=== PATIENT | female | born 1955 | race Caucasian/White ===

== ENCOUNTER 2017-12-12 16:25 | Emergency (ER) | payer BC ==
--- NOTE | 2017-12-12 16:31 | PDOC ---
History of Present Illness - History of Present Illness Initial Comments: 12/12/17 16:56 The patient is a 62 year old female with no pertinent past medical history who presents with RLQ pain since Friday at 9:00 am. Patient saw her PCP today, and he sent her to the ED to rule out appendicitis. Patient states her pain is exacerbated when sitting, better when she stands, rates her rlq pain 5/10 and radiates to her back. She states that her pain is similar to her pain in August when she lifted the leaf of a table. She states that she took Advil for the pain yesterday with little relief. She denies recent heavy lifting. She denies dysuria, hematuria, nausea, vomitting, diarrhea, fever, chills, recent illness, recent travel outside of the country. Surgical Hx: Cesarian section x2 Social Hx: Works as a school nurse. Denies alcohol/tobacco/drug use Allergies: Latex PCP: Dr. Gandhi <Dione Waggoner - Last Filed: 12/12/17 16:57> - General History Source: Patient Exam Limitations: No Limitations <María Beauchamp - Last Filed: 12/13/17 14:45> - General Chief Complaint: Pain Stated Complaint: RLA PAIN X4 DAYS Time Seen by Provider: 12/12/17 16:26 Past History <Dione Waggoner - Last Filed: 12/12/17 16:57> - Suicide/Smoking/Psychosocial Hx Smoking History: Never smoked Hx Alcohol Use: No Drug/Substance Use Hx: No Substance Use Type: None <María Beauchamp - Last Filed: 12/13/17 14:45> - Past Medical History Allergies/Adverse Reactions: Allergies Allergy/AdvReac Type Severity Reaction Status Date / Time latex Allergy Verified 12/12/17 16:26 Home Medications: Ambulatory Orders NK [No Known Home Medication] 12/12/17 Review of Systems - Review of Systems Comments:: 12/12/17 16:57 GENERAL/CONSTITUTIONAL: No: fever, chills, weakness, loss of appetite. HEAD, EYES, EARS, NOSE AND THROAT: No: change in vision, ear pain, discharge, sore throat, throat swelling. CARDIOVASCULAR: No: chest pain, lightheadedness, palpitations, syncope RESPIRATORY: No: cough, shortness of breath, wheezing, hemoptysis, stridor. GASTROINTESTINAL: +RLQ pain No: nausea, vomiting, abdominal cramping, diarrhea, rectal bleeding, constipation. GENITOURINARY: No: dysuria, hematuria, frequency, urgency, flank pain. MUSCULOSKELETAL: +back pain secondary to RLQ pain. No: neck pain, joint pain, muscle swelling or pain SKIN: No: lesions, pallor, rash or easy bruising. NEUROLOGIC: No: headache, vertigo, paresthesias, weakness ENDOCRINE: No: unexplained weight gain or loss HEMATOLOGIC/LYMPHATIC: No: anemia, easy bleeding, swelling nodes 12/12/17 16:57 <Dione Waggoner - Last Filed: 12/12/17 16:57> *Physical Exam - Physical Exam Comments: 12/12/17 16:58 GENERAL: The patient is in no acute distress. HEAD: Normal with no signs of trauma. EYES: PERRLA, EOMI, sclera anicteric, conjunctiva clear. ENT: Ears normal, nares patent, oropharynx clear without exudates. Moist mucous membranes. NECK: Normal range of motion, supple without lymphadenopathy, JVD, or masses. LUNGS: Breath sounds equal, clear to auscultation bilaterally. No wheezes, and no crackles. HEART:Regular rate and rhythm, normal S1 and S2 without murmur, rub or gallop. ABDOMEN: Soft, nontender, normoactive bowel sounds. No guarding, no rebound. EXTREMITIES: Normal range of motion, no edema. No clubbing or cyanosis. No erythema, or tenderness. NEUROLOGICAL: Cranial nerves II through XII grossly intact. Normal speech. No focal neurological deficits. MUSCULOSKELETAL: Back nontender to palpation, no CVA tenderness SKIN: Warm, Dry, normal turgor, no rashes or lesions noted. <Dione Waggoner - Last Filed: 12/12/17 16:57> ED Treatment Course - LABORATORY CBC & Chemistry Diagram: 12/12/17 17:05 12/12/17 17:05 <María Beauchamp - Last Filed: 12/13/17 14:45> Medical Decision Making - Medical Decision Making 12/12/17 16:47 Miss Gonsalez is a 62-year-old female who is otherwise healthy who presents emergency department with a complaint of right lower quadrant pain. Patient symptoms began 3 days ago. There possibly 9:30am after returning home from her [place] from the airport, she noted right lower quadrant pain. Patient has been taking Motrin for pain. When it's at its worse, she notes pain both in her right lower quadrant and her right sacroiliac joint. She's had no nausea, vomiting, diarrhea. She's had no fevers or chills. She is able to tolerate foods and liquids. She denies hematuria or dysuria. In August she had something similar, this lasted several days and self resolved. Patient denies any traumatic injuries, patient denies heavy lifting. On examination: Patient is relatively comfortable appearing. Heart is regular Lungs are clear Hypoactive abdominal sounds. Patient's abdomen is soft, nondistended. She's actually not tender to palpation in the right lower quadrant. She has no CVA tenderness. When patient sat forward clenching her abdominal muscles, she noted this triggered her pain. Will do: Labs CT of the abdomen and pelvis Pelvic ultrasound to evaluate for ruptured ovarian cyst. Will give Tylenol IV as well as IV fluids (pt has a prior sensitivity to codeine ) Will reassess 12/12/17 18:19 Laboratory Tests 12/12/17 12/12/17 12/12/17 17:05 17:05 18:05 WBC 6.2 Hgb 14.5 Hct 42.5 Plt Count 169 Neutrophils % 61.1 Lymphocytes % 24.2 BUN 19 H Creatinine < 0.8 Random Glucose 116 H Urine Blood 1+ H Urine Nitrite Negative Ur Leukocyte Esterase Trace H TV US, small ov cyst, trace free fluid Signed out to Dr Evangelitsa Pending CT clinical impression: abdominal pain, initial presenting <María Beauchamp - Last Filed: 12/13/17 14:45> *DC/Admit/Observation/Transfer - Attestations Scribe Attestion: 12/12/17 16:58 Documentation prepared by Dione Waggoner, acting as medical transport specialist for María Beauchamp MD. <Dione Waggoner - Last Filed: 12/12/17 16:57> <María Beauchamp - Last Filed: 12/13/17 14:45> Diagnosis at time of Disposition: Abdominal pain, Constipation - Discharge Dispostion Disposition: HOME Condition at time of disposition: Stable - Patient Instructions Printed Discharge Instructions: Constipation (Alternative Therapy), Constipation Additional Instructions: Increase her fluid intake, and fiber in your diet. Also can purchase [id number] laxative such as Dulcolax or MiraLAX and take as directed. Return to the emergency department immediately with ANY new, persistent or worsening symptoms. Continue any medications as previously prescribed by your physician. You should follow up with your primary doctor as soon as possible regarding today's emergency department visit. . Please make sure your doctor reviews the results of your emergency evaluation. Thank you for coming to the Emergency Department today for your care. It was a pleasure to see you today. Please note that your evaluation is INCOMPLETE until you follow-up with your doctor.
[2017-12-12] MEDS ORDERED: SODIUM CHLORIDE 1,000 ML IV STA (16:44)
[2017-12-12] MEDS ORDERED: ACETAMINOPHEN 1000 MG/100 ML VIAL (NON FORMULARY) IVPB ONE (16:44)
[2017-12-12] MEDS ORDERED: ACETAMINOPHEN INJECTION 100 ML IVPB ONE (16:51)
[2017-12-12 17:18] LABS: BASO % 2.3 % (0-2.0); EOS % 7.1 % (0-4.5); HEMATOCRIT 42.5 % (32.4-45.2); HEMOGLOBIN 14.5 GM/dl (10.7-15.3); LYMPH % 24.2 % (8-40); MCH 30.9 pg (25.7-33.7); MCHC 34.1 g/dl (32.0-36.0); MEAN CELL VOLUME 90.8 fl (80-96); MEAN PLT VOLUME 9.5 fl (7.5-11.1); MONO % 5.3 % (3.8-10.2); NEUT % 61.1 % (42.8-82.8); PLATELET COUNT 169 K/MM3 (134-434); RBC 4.67 M/mm3 (3.60-5.2); RDW 12.1 % (11.6-15.6); WHITE BLOOD COUNT 6.2 K/mm3 (4.0-10.8)
[2017-12-12 17:27] LABS: ALK PHOS 61 U/L (32-92); AMYLASE 59 U/L (25-125); ANION GAP 6 (8-16); BLOOD UREA NITROGEN 19 mg/dl (7-18); CHLORIDE 105 mmol/L (98-107); CO2 27 mmol/L (22-28); GLUCOSE,RANDOM 116 mg/dl (74-106); POTASSIUM 4.5 mmol/L (3.5-5.1); SGOT/AST 24 U/L (10-42); SGPT/ALT 10 U/L (10-40); SODIUM 138 mmol/L (136-145); TOT PROT 6.6 g/dl (6.4-8.3)
[2017-12-12 17:36] VITALS: BP 187/77; PULSE 63; TEMP 98.3; BMI 23.2
[2017-12-12 17:38] LABS: CREATININE < 0.8 mg/dl (0.6-1.3)
[2017-12-12 18:12] LABS: URINE APPEARANCE Clear; URINE BILIRUBIN Negative (NEGATIVE); URINE BLOOD 1+ (NEGATIVE); URINE COLOR YELLOW; URINE GLUCOSE (UA) Negative (NEGATIVE); URINE KETONE Negative (NEGATIVE); URINE LEUK ESTERASE TRACE (NEGATIVE); URINE NITRITE Negative (NEGATIVE); URINE PROTEIN Negative (NEGATIVE); URINE UROBILINOGEN 0.2 (0.2-1.0)
[2017-12-12 19:07] LABS: LIPASE 137 U/L (73-393)
--- NOTE | 2017-12-12 19:23 | PDOC ---
*Physical Exam - Vital Signs Last Vital Signs Temp Pulse Resp BP Pulse Ox 98.3 F 63 20 187/77 98 12/12/17 16:26 12/12/17 16:26 12/12/17 16:26 12/12/17 16:26 12/12/17 16:26 ED Treatment Course - LABORATORY CBC & Chemistry Diagram: 12/12/17 17:05 12/12/17 17:05 - ADDITIONAL ORDERS Additional order review: Laboratory Results 12/12/17 12/12/17 18:05 17:05 Sodium 138 Potassium 4.5 Chloride 105 Carbon Dioxide 27 Anion Gap 6 L BUN 19 H Creatinine < 0.8 Creat Clearance w eGFR > 60 Random Glucose 116 H Calcium 9.0 Total Bilirubin 1.0 AST 24 ALT 10 Alkaline Phosphatase 61 Total Protein 6.6 Albumin 4.0 Total Amylase 59 Lipase 137 Urine Color Yellow Urine Appearance Clear Urine pH 6.0 Ur Specific Barton 1.010 Urine Protein Negative Urine Glucose (UA) Negative Urine Ketones Negative Urine Blood 1+ H Urine Nitrite Negative Urine Bilirubin Negative Urine Urobilinogen 0.2 Ur Leukocyte Esterase Trace H 12/12/17 17:05 RBC 4.67 MCV 90.8 MCHC 34.1 RDW 12.1 MPV 9.5 Neutrophils % 61.1 Lymphocytes % 24.2 Monocytes % 5.3 Eosinophils % 7.1 H Basophils % 2.3 H - Medications Given in the ED: ED Medications Discontinued Medications Generic Name Dose Route Start Last Admin Trade Name Freq PRN Reason Stop Dose Admin Acetaminophen 1,000 mg 12/12/17 16:44 12/12/17 17:01 Ofirmev Injection - IVPB 12/12/17 16:45 1,000 mg ONCE ONE Administration Sodium Chloride 1,000 mls @ 1,000 mls/hr 12/12/17 16:44 12/12/17 17:01 Normal Saline - IV 12/12/17 17:43 1,000 mls/hr ASDIR STA Administration Progress Note - Progress Note Progress Note: This is a 62-year-old female whose care was transferred to ms from Dr. Beauchamp at 1900 hrs. Patient was sent to the emergency department by her PMD for evaluation and workup of right lower abdominal pain. Patient's chemistries and CBC are unremarkable. Patient has a CAT scan pending plan is a CAT scan is normal patient will be discharged home. 21:15 CT scan shows moderate fecal retention otherwise no acute intra-abdominal pathology the fluid seen on ultrasound is not visualized on CAT scan. I discussed with patient the findings of her CAT scan recommended that she increase fiber and fluid in her diet that she use some laxatives such as Dulcolax or MiraLAX and follow-up with her primary care doctor in the morning *DC/Admit/Observation/Transfer Diagnosis at time of Disposition: Abdominal pain Qualifiers: Abdominal location: right lower quadrant Qualified Code(s): R10.31 - Right lower quadrant pain Constipation Qualifiers: Constipation type: unspecified constipation type Qualified Code(s): K59.00 - Constipation, unspecified - Discharge Dispostion Disposition: HOME Admit: No - Referrals - Patient Instructions Printed Discharge Instructions: Constipation, Constipation (Alternative Therapy ) Additional Instructions: Increase her fluid intake, and fiber in your diet. Also can purchase [id number] laxative such as Dulcolax or MiraLAX and take as directed. Return to the emergency department immediately with ANY new, persistent or worsening symptoms. Continue any medications as previously prescribed by your physician. You should follow up with your primary doctor as soon as possible regarding today's emergency department visit. . Please make sure your doctor reviews the results of your emergency evaluation. Thank you for coming to the Emergency Department today for your care. It was a pleasure to see you today. Please note that your evaluation is INCOMPLETE until you follow-up with your doctor. - Post Discharge Activity
[2017-12-12 22:04] LABS: URINE WBC 0-2 (0-5)
[2017-12-12 22:05] LABS: URINE BACTERIA FEW /hpf (NEGATIVE)
== END 2017-12-12 21:22 | disposition home or self-care (01) ==
LOC: FER 16:25
PROC: 3E033NZ Introduction of Analgesics, Hypnotics, Sedatives into Peripheral Vein, Percutaneous Approach (ICD-10-PCS; principal; 2017-12-12)
PROC: 3E0337Z Introduction of Electrolytic and Water Balance Substance into Peripheral Vein, Percutaneous Approach (ICD-10-PCS; 2017-12-12)
DX: K59.00 Constipation, unspecified (principal); R10.9 Unspecified abdominal pain
CPT/HCPCS: 36415; 74177-TC; 76830-TC; 80053; 81003; 81015; 82150; 83690; 85025; 87086; 99283-25; J0131; J7030

== ENCOUNTER 2022-01-19 14:07 | Inpatient (IN) | payer OTHER, BC ==
[2022-01-19 14:52] VITALS: BMI 23.8
[2022-01-19 15:24] LABS: HEMOGLOBIN 16.2 G/dL (10.7-15.3); MCH 32.4 pg (25.7-33.7); MCHC 35.2 g/dl (32.0-36.0); MEAN PLT VOLUME 9.1 fl (7.5-11.1); PLATELET COUNT 144.1 10^3/uL (134-434)
[2022-01-19 15:24] LABS: INR 1.11 (0.83-1.09); PROTHROMBIN TIME (PATIENT) 12.8 SEC (9.7-13.0)
[2022-01-19 15:33] LABS: ALBUMIN 4.6 g/dl (3.4-5.0); BILIRUBIN,TOTAL 1.4 mg/dl (0.2-1); CALCIUM 9.5 mg/dl (8.5-10); CREATININE 0.7 mg/dl (0.55-1.3); TOT PROT 7.1 g/dl (6.4-8.2)
[2022-01-19 16:38] LABS: EPITHELIAL CELLS FEW /hpf
[2022-01-19] MEDS ORDERED: ASPIRIN 81 MG CHEWABLE TABLETS PO ONE (20:14)
[2022-01-19] MEDS ORDERED: ASPIRIN COATED 81 MG TABLET.EC ONE (20:21)
[2022-01-20 07:54] LABS: HEMATOCRIT 45.8 % (32.4-45.2); MCH 32.1 pg (25.7-33.7); MCHC 34.9 g/dl (32.0-36.0); MEAN PLT VOLUME 9.1 fl (7.5-11.1); PLATELET COUNT 163.6 10^3/uL (134-434); RBC 4.98 10^6/uL (3.60-5.2); RDW 13.5 % (11.6-15.6); WHITE BLOOD COUNT 5.3 10^3/uL (4.0-10.8)
[2022-01-20 08:49] LABS: CALCIUM 9.6 mg/dl (8.5-10); CREATININE 0.7 mg/dl (0.55-1.3)
[2022-01-20] MEDS: ASPIRIN COATED 81 MG TABLET.EC PO SCH (09:53)
[2022-01-20] MEDS ORDERED: ATORVASTATIN CA 80 MG TABLET (FP) PO SCH (22:00)
[2022-01-21 08:45] LABS: CHOLESTEROL 223 mg/dl (50-200); HDL CHOLESTEROL 76 mg/dl (40-60); LDL CHOLESTEROL (ONLY DFH) 138 mg/dl (5-100); TRIGLYCERIDES 45 mg/dl (0-150)
[2022-01-21] MEDS: ASPIRIN COATED 81 MG TABLET.EC PO SCH (10:55)
[2022-01-21 14:08] VITALS: BP 137/56; PULSE 61; TEMP 98.6
== END 2022-01-21 17:51 | disposition home or self-care (01) | DRG 69 ==
LOC: FER 14:07 → FM/S 19:38
PROVIDERS: ADMIT Internal Medicine; ATTEND Nurse Practitioner Acute Care
DX: G45.9 Transient cerebral ischemic attack, unspecified (principal); G43.909 Migraine, unspecified, not intractable, without status migrainosus; I16.0 Hypertensive urgency; G45.4 Transient global amnesia
CPT/HCPCS: 0241U-QW; 36415; 70450-TC; 70551-TC; 71045-TC-FY; 80048; 80053; 80061; 81003; 81015; 84443; 84484; 85025; 85027; 85610; 93005; 93306-TC; 93880-TC; 97116-GP; 97161-GP; 99285-25